=== PATIENT | female | born 1985 | race Caucasian/White ===

== ENCOUNTER 2016-09-20 12:16 | Emergency (ER) | payer OTHER ==
[~2016-09-20] VITALS: Ht 167.6 cm; Wt 105.5 kg
[2016-09-20 12:16] VITALS: Ht 167.6 cm; Wt 105.5 kg
[2016-09-20] MEDS ORDERED: SODIUM CHLORIDE 0.9% 1000ML 1,000 ML IV STA ×2 (12:25)
[2016-09-20] MEDS ORDERED: ONDANSETRON INJ 2 MG/ML 2 ML VIAL IV STA (12:25)
[2016-09-20] MEDS ORDERED: ACETAMINOPHEN 500 MG TAB PO STA (12:37)
[2016-09-20] MEDS ORDERED: OPTIRAY 320 IV PRN (12:45)
[2016-09-20 13:00] LABS: BASO % 0.6 %; BASO ABS # 0.02 K/uL (0-0.2); COMPLETE YES; EOS % 0.6 %; HEMATOCRIT 40.6 % (37-47); IG% 0.3 %; LYMPH % 27.7 %; LYMPH ABS # 0.91 K/uL (1.2-3.4); MEAN CORPUSCULAR HGB CONC 32.5 g/dl (32-36); MEAN PLATELET VOLUME 11.5 fL (7.4-10.4); MONO % 10.9 %; NEUT % 59.9 %; PLATELET COUNT 149 K/uL (130-400); RED BLOOD COUNT 4.72 M/uL (4.2-5.4); WHITE BLOOD COUNT 3.29 K/uL (4.8-10.8)
--- NOTE | 2016-09-20 13:18 | EMERGENCY ROOM VISIT NOTE ---
History Report prepared by Mirtaibbooker: Deepthi Amaro Under the Supervision of: Dr. Marshall Arango M.D. First contact with patient: 12:23 Chief Complaint: ABDOMINAL PAIN Stated Complaint: ABD PAIN, HEADACHE Nursing Triage Summary: patient states she has been having cramping and diarrhea since wednesday. pt now c/o abdominal pain mid abdominal area and fever yesterday afternoon. pt also c/ o nausea, headache and feverish this afternoon. History of Present Illness The patient is a 30 year old female who presents to the Emergency Room with complaints of persistent abdominal pain for the past 6 days. She describes the pain as feeling crampy in nature and rates her discomfort as a 5/10. She initially thought it was menstrual pain, so she took Midol, which provided minimal relief. She admits to intermittent diarrhea for the past 6 days. Magnesium Citrate provided no relief from the diarrhea. She reports she also noticed a "lump" right by her umbilicus within the past few days that is tender to palpation. Yesterday she developed a fever, which broke last night after taking Tylenol. The patient admits to some nausea and a headache, but she has not vomited. She is currently on her menstrual period and states she occasionally gets migraine headaches with her period, noting she experienced a migraine headache 4 days ago. It has since resolved. The patient denies any recent antibiotic use. She denies any history of c-diff or intestinal issues. She still has both her gallbladder and appendix. Pt denies LOC, chills, diaphoresis, visual changes, neck pain, chest pain, breathing difficulties, vomiting, back pain, melena, hematochezia, urinary symptoms, numbness, weakness , lymphadenopathy, rash, or other complaints. The patient states she is leaving for [email or web address] this coming week, in approximately 2 days. Source of History: patient Onset: 6 days PERSONAL SHOPPER Position: abdomen Symptom Intensity: 5/10 Quality: cramping Timing: other (persistent) Modifying Factors (Relieving): other (Midol) Associated Symptoms: + fevers, + headache, + nausea Review of Systems See HPI for pertinent positives and negatives. A total of ten systems were reviewed and were otherwise negative. Family History Cancer Social History Smoking Status: Never Smoker Smokeless Tobacco Use: No Alcohol Use: occasionally Drug Use: none Marital Status: Housing Status: lives with significant other Occupation Status: employed Current/Historical Medications No Active Prescriptions or Reported Meds Allergies Coded Allergies: No Known Allergies (Unverified , NONE, 09/17/08) Physical Exam Vital Signs Date Time Temp Pulse Resp B/P (MAP) Pulse Ox O2 Delivery O2 Flow Rate FiO2 09/20/16 14:48 37.0 82 18 144/95 98 09/20/16 13:42 84 18 128/89 97 Room Air 09/20/16 12:16 37.0 117 20 134/86 100 Room Air Physical Exam GENERAL: Awake, alert, well-appearing, in no distress HENT: Normocephalic, atraumatic. Oropharynx unremarkable. EYES: Normal conjunctiva. Sclera non-icteric. NECK: Supple. No nuchal rigidity. FROM. No JVD. RESPIRATORY: Clear to auscultation. CARDIAC: Regular rate, normal rhythm. Extremities warm and well perfused. Pulses equal. ABDOMEN: Soft, non-distended. Periumbilical and suprapubic tenderness to palpation. No rebound or guarding. No masses. RECTAL: Deferred. MUSCULOSKELETAL: Chest examination reveals no tenderness. The back is symmetrical on inspection without obvious abnormality. There is no CVA tenderness to palpation. No joint edema. LOWER EXTREMITIES: Calves are equal size bilaterally and non-tender. No edema. No discoloration. NEURO: Normal sensorium. No sensory or motor deficits noted. SKIN: No rash or jaundice noted. Medical Decision & Procedures ER Provider Diagnostic Interpretation: Radiology results as stated below per my review and radiologist interpretation: ABD/PELVIS IV CONTRAST ONLY CT DOSE: 984.05 mGy.cm HISTORY: Pain nausea, fever, willard and infraumbilical abd pain with guarding TECHNIQUE: Multiaxial CT images of the abdomen and pelvis were performed following the use of intravenous contrast. A dose lowering technique was utilized adhering to the principles of ALARA. COMPARISON STUDY: None. FINDINGS: Lung bases are clear. Liver spleen and pancreas are uniform. Kidneys enhance uniformly. No evidence for hydronephrosis. There is subtle infiltrative change of the root of the mesentery with moderate mesenteric adenopathy. The appendix is normal. Bowel pattern is nonobstructive. Bladder is midline. IMPRESSION: 1. mesenteric adenitis. 2. Normal appendix. 3. Nonobstructive bowel pattern. The above report was generated using voice recognition software. It may contain grammatical, syntax or spelling errors. Electronically signed by: Adi Jacobo M.D. 09/20/2016 1:44 PM Laboratory Results 09/20/16 12:45 Red Blood Count 4.72, Mean Corpuscular Volume 86.0, Mean Corpuscular Hemoglobin 28.0, Mean Corpuscular Hemoglobin Concent 32.5, Mean Platelet Volume 11.5, Neutrophils (%) (Auto) 59.9, Lymphocytes (%) (Auto) 27.7, Monocytes (%) (Auto) 10.9, Eosinophils (%) (Auto) 0.6, Basophils (%) (Auto) 0.6, Neutrophils # (Auto ) 1.97, Lymphocytes # (Auto) 0.91, Monocytes # (Auto) 0.36, Eosinophils # (Auto ) 0.02, Basophils # (Auto) 0.02 09/20/16 12:45 Test 09/20/16 12:45 09/20/16 14:20 White Blood Count 3.29 K/uL (4.8-10.8) Red Blood Count 4.72 M/uL (4.2-5.4) Hemoglobin 13.2 g/dL (12.0-16.0) Hematocrit 40.6 % (37-47) Mean Corpuscular Volume 86.0 fL (80-100) Mean Corpuscular Hemoglobin 28.0 pg (25-34) Mean Corpuscular Hemoglobin Concent 32.5 g/dl (32-36) Platelet Count 149 K/uL (130-400) Mean Platelet Volume 11.5 fL (7.4-10.4) Neutrophils (%) (Auto) 59.9 % Lymphocytes (%) (Auto) 27.7 % Monocytes (%) (Auto) 10.9 % Eosinophils (%) (Auto) 0.6 % Basophils (%) (Auto) 0.6 % Neutrophils # (Auto) 1.97 K/uL (1.4-6.5) Lymphocytes # (Auto) 0.91 K/uL (1.2-3.4) Monocytes # (Auto) 0.36 K/uL (0.11-0.59) Eosinophils # (Auto) 0.02 K/uL (0-0.5) Basophils # (Auto) 0.02 K/uL (0-0.2) RDW Standard Deviation 45.2 fL (36.4-46.3) RDW Coefficient of Variation 14.4 % (11.5-14.5) Immature Granulocyte % (Auto) 0.3 % Immature Granulocyte # (Auto) 0.01 K/uL (0.00-0.02) Anion Gap 7.0 mmol/L (3-11) Est Creatinine Clear Calc Drug Dose 121.7 ml/min Estimated GFR () 109.7 Estimated GFR (Non- 94.6 BUN/Creatinine Ratio 12.2 (10-20) Calcium Level 8.7 mg/dl (8.5-10.1) Total Bilirubin 0.4 mg/dl (0.2-1) Direct Bilirubin < 0.1 mg/dl (0-0.2) Aspartate Amino Transf (AST/SGOT) 21 U/L (15-37) Alanine Aminotransferase (ALT/SGPT) 27 U/L (12-78) Alkaline Phosphatase 62 U/L (45-117) Total Protein 7.3 gm/dl (6.4-8.2) Albumin 3.4 gm/dl (3.4-5.0) Lipase 148 U/L (73-393) Human Chorionic Gonadotropin, Qual NEG (NEG) Urine Color YELLOW Urine Appearance CLEAR (CLEAR) Urine pH 8.0 (4.5-7.5) Urine Specific [place] > 1.045 (1.000-1.030) Urine Protein NEG (NEG) Urine Glucose (UA) NEG (NEG) Urine Ketones NEG (NEG) Urine Occult Blood 2+ (NEG) Urine Nitrite NEG (NEG) Urine Bilirubin NEG (NEG) Urine Urobilinogen NEG (NEG) Urine Leukocyte Esterase NEG (NEG) Urine WBC (Auto) 0 /hpf (0-5) Urine RBC (Auto) 5-10 /hpf (0-4) Urine Hyaline Casts (Auto) 0 /lpf (0-5) Urine Epithelial Cells (Auto) 5-10 /lpf (0-5) Urine Bacteria (Auto) NEG (NEG) Laboratory results reviewed by me Medications Administered Medications (Trade) Dose Ordered Sig/Geoffrey Route Start Time Stop Time Status Last Admin Dose Admin Sodium Chloride 1,000 ml @ 125 mls/hr Q8H STAT IV 09/20/16 12:25 09/20/16 14:59 DC 09/20/16 14:05 125 MLS/HR Sodium Chloride 1,000 ml @ 999 mls/hr Q1H1M STAT IV 09/20/16 12:25 09/20/16 13:25 DC 09/20/16 12:47 999 MLS/HR Acetaminophen (Tylenol Tab) 1,000 mg NOW STAT PO 09/20/16 12:37 09/20/16 12:38 DC 09/20/16 12:46 1,000 MG Ondansetron HCl (ZOFRAN ODT 4MG Home Pack) 1 homepack UD ONCE PO 09/20/16 14:45 09/20/16 14:46 DC 09/20/16 14:47 1 HOMEPACK ED Course 1224: The patient was evaluated in room A10. A complete history and physical exam was performed. 1225: Zofran 4 mg IV, NSS 1000 ml @ 999 mls/hr IV, NSS 1000 ml @ 125 mls/hr IV. 1237: Acetaminophen 1000 mg PO. 1349: I reevaluated the patient. She is feeling well and resting comfortably. 1440: I reevaluated the patient. She is still feeling better. I discussed her results and discharge instructions and she verbalized complete understanding and agreement. Medical Decision Medication Reconciliation: I attest that I have personally reviewed the patient' s current medication list Patient was found to have a slightly elevated blood pressure due to circumstances. I do not believe that the patient requires hypertension monitoring. Triage Nursing notes reviewed. The patient's presentation and history were concerning for abdominal pain, fever , diarrhea and headache. Etiologies such as food borne illness, viral syndrome, c.diff infection, appendicitis, diverticulitis, obstruction, inflammatory bowel disease, renal colic, PUD, biliary pathology, pancreatitis, mesenteric ischemia, aortic pathology, infections, genitourinary, UTI, perforated viscus, migraine, , as well as others were entertained. The patient requested tylenol and was also hydrated. She declined analgesia. Blood work and imaging ordered. The patient had guarding and moderate infraumbilical tenderness. The patient's CBC revealed a mild leukopenia. Her chemistry panel, LFTs and lipase were unremarkable. Urinalysis did show some trace blood but the patient was on her menses. She is not . The patient had a stool sample sent. CT imaging was performed and revealed findings consistent with mesenteric adenitis. The main cluster of inflamed lymph nodes is infraumbilical and this would explain her tenderness. I discussed conservative management with the patient. She felt comfortable. She was given a Zofran home pack in case of any nausea. She will hydrate. She will follow-up as an outpatient. If she has any worsening issues she will come back to the Emergency Room for reevaluation. By the evaluation outlined above other emergent etiologies such as those listed in the differential, as well as others, were deemed relatively unlikely. The patient was educated about the findings as listed above. All questions were answered and the patient was pleased with the treatment. Return instructions were outlined and the patient was discharged in stable condition. The patient was referred to her PCP For follow-up for a recheck of the current condition. Impression Primary Impression: Mesenteric adenitis Additional Impressions: Abdominal pain Diarrhea Scribe Attestation The scribe's documentation has been prepared under my direction and personally reviewed by me in its entirety. I confirm that the note above accurately reflects all work, treatment, procedures, and medical decision making performed by me. Departure Information Dispostion Home / Self-Care Prescriptions No Active Prescriptions or Reported Meds Referrals Elle Alba C.R.N.P. (PCP) Patient Instructions ED Adenitis Mesenteric, My [facility] Additional Instructions ABDOMINAL PAIN INSTRUCTIONS: Ibuprofen(Motrin, Advil) may be used for fever or pain. Use 600mg every six hours as needed. Take with food. Avoid using more than 2400mg in a 24 hour period. Do not use 2400mg per day for more than three consecutive days without physician direction. Prolonged inappropriate use can lead to stomach upset or ulcers. (AND/OR) Acetaminophen(Tylenol) may be used for fever or pain. Use 1000mg every six hours as needed. Avoid using more than 4000mg in a 24 hour period. Zofran 4 mg oral dissolving tablets: take one tablet and allow it to melt in your mouth every 4 hours as needed for nausea. Rest and drink plenty of fluids as tolerated. Slow sips of water or sports drinks are recommended instead of large amounts all at once. Continue current medications. Once your stomach is settled start with a clear liquid diet (jello, soup broth, etc.) and then advance as tolerated. You should avoid full, heavy meals for about 24 hrs from the time your symptoms resolved. Return to the ER immediately for worsening or persistent abdominal pain, vomiting, fevers, chest pains, difficulty breathing, black or bloody stools, worsening of your condition, or as needed. Follow up with your primary physician in 2-3 days for a recheck of your current condition. Problem Qualifiers
[2016-09-20 13:21] LABS: PREG INTERNAL NEGATIVE QC NEG CLEAR BACKGROUND; PREG INTERNAL POSITIVE QC POS CONTROL LINE
[2016-09-20 13:30] LABS: ALT/SGPT 27 U/L (12-78); AST/SGOT 21 U/L (15-37); BLOOD UREA NITROGEN 10 mg/dl (7-18); BUN/CREATININE RATIO 12.2 (10-20); CALCIUM 8.7 mg/dl (8.5-10.1); CARBON DIOXIDE 26 mmol/L (21-32); CHLORIDE 107 mmol/L (98-107); CREATININE 0.83 mg/dl (0.60-1.20); GLUCOSE 100 mg/dl (70-99); POTASSIUM 3.7 mmol/L (3.5-5.1); SODIUM 140 mmol/L (136-145)
[2016-09-20 13:32] LABS: ALKALINE PHOSPHATASE 62 U/L (45-117)
--- NOTE | 2016-09-20 13:45 | DIAGNOSTIC IMAGING REPORT ---
ABD/PELVIS IV CONTRAST ONLY CT DOSE: 984.05 mGy.cm HISTORY: Pain nausea, fever, willard and infraumbilical abd pain with guarding TECHNIQUE: Multiaxial CT images of the abdomen and pelvis were performed following the use of intravenous contrast. A dose lowering technique was utilized adhering to the principles of ALARA. COMPARISON STUDY: None. FINDINGS: Lung bases are clear. Liver spleen and pancreas are uniform. Kidneys enhance uniformly. No evidence for hydronephrosis. There is subtle infiltrative change of the root of the mesentery with moderate mesenteric adenopathy. The appendix is normal. Bowel pattern is nonobstructive. Bladder is midline. IMPRESSION: 1. mesenteric adenitis. 2. Normal appendix. 3. Nonobstructive bowel pattern. The above report was generated using voice recognition software. It may contain grammatical, syntax or spelling errors. Electronically signed by: Adi Jacobo M.D. 09/20/2016 1:44 PM Dictated Date/Time: 09/20/2016 1:42 PM
[2016-09-20] MEDS ORDERED: ONDANSETRON HOME PACK 4MG OD TAB PO ONE (14:45)
[2016-09-20 14:48] VITALS: BP 144/95; PULSE 82; TEMP 37; O2SAT 98
[2016-09-20 15:02] LABS: URINE APPEARANCE CLEAR (CLEAR); URINE BILIRUBIN NEG (NEG); URINE COLOR YELLOW; URINE NITRITE NEG (NEG); URINE SPECIFIC GRAVITY > 1.045 (1.000-1.030); UROBILINOGEN NEG (NEG); ZZUR CULT IF INDIC CLEAN CATCH NO
[2016-09-20 15:07] LABS: MANUAL MICROSCOPIC REQUIRED? NO; REVIEW REQ? NO
== END 2016-09-20 14:49 | disposition home or self-care (01) ==
LOC: C.EDB 12:16 → C.EDA 14:49
DX: I88.0 Nonspecific mesenteric lymphadenitis (principal); R10.9 Unspecified abdominal pain; R19.7 Diarrhea, unspecified; D72.819 Decreased white blood cell count, unspecified; Z80.9 Family history of malignant neoplasm, unspecified

== ENCOUNTER → 2017-01-01 | Outpatient (CLI) | payer OTHER ==
[2017-01-01 13:16] LABS: ESTIMATED AVERAGE GLUCOSE 100 mg/dl; HA1C FLAG Normal (Normal)
== END | disposition home or self-care (01) ==
LOC: C.LABBFT 10:04
PROVIDERS: ATTEND Nurse Practitioner
DX: R73.01 Impaired fasting glucose (principal)

== ENCOUNTER → 2017-05-28 | Outpatient (CLI) | payer OTHER | END | disposition home or self-care (01) | LOC: C.LAB 11:24 | PROVIDERS: ATTEND Obstetrics & Gynecology | DX: E03.9 Hypothyroidism, unspecified (principal) ==

== ENCOUNTER 2019-07-19 07:36 | Inpatient (IN) ==
[2019-07-19] MEDS ORDERED: OXYTOCIN 30 UNITS/500 ML BAG IV PRN ×3 (07:41→20:26)
[2019-07-19] MEDS ORDERED: PENICILLIN G POTASSIUM 6 MU in DEXTROSE 5% 250 ML IV ONE (08:00)
--- NOTE | 2019-07-19 08:01 | History & Physical Report ---
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 - admits, IV, labs - augmentation as needed Labs: GBS +, A+ SVE: 4 cm, 75%, -2, soft, posterior GDMA2 - continue to monitor BG Hypothyroidism - switch levothyroxine from 88 - 75 after delivery GBS + status - penicillin 6 million units and 3 million units every 4 hours Fetus - FHTS: category 1 - EFW: 7-8 lbs - continue monitoring - contractions every 6-7 minutes History of Present Illness Chief Complaint: IOL Primary Care Provider: SILVIA Key Sabra Payan is a 33 yo here for induction of . 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 She is taking levothyroxine for hypothyroidism with a dose of 88 and this is planned to be transitioned to 75 after delivery. She has GDMA2 and is taking NPH 25 U QHS. She has had some Fillmore-Sanchez contractions this morning, no bleeding or loss of fluid, she thinks she lost her mucus plug on Wednesday and has had some increased discharge. She has not been sick during this . 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 They are having a boy and plan to name him Arthur. Plan is to and circumcision. She has not had any sick contacts, no recent travel, no fevers, and no shortness of breath. Medications: Levothyroxine 88, PNV, and Vit. D Allergies: denies allergies to medication, food or materials Allergies Allergy/AdvReac Type Severity Reaction Status Date / Time No Known Allergies Allergy NONE Verified 07/18/19 10:11 Home Medications Home Medications Medication Instructions Recorded Confirmed Type prenat.vits,mary,[id number] 1 tab PO DAILY 10/04/18 07/19/19 History levothyroxine 88 mcg tablet 88 mcg PO DAILY #90 tab 02/20/19 07/19/19 Rx acetone (urine) test #50 ea 05/11/19 07/18/19 Rx blood sugar diagnostic #150 ea 05/11/19 07/18/19 Rx blood-glucose meter #1 ea 05/11/19 07/18/19 Rx lancets 33 gauge #150 ea 05/11/19 07/18/19 Rx pen needle, diabetic 32 gauge x #50 ea 05/26/19 07/18/19 Rx 5/32" insulin NPH isoph U-100 human 100 25 units SQ QPM #15 ml 06/22/19 07/19/19 Rx unit/mL (3 mL) subcutaneous pen Patient History Medical History Abnormal biochemical finding on screening of mother Encounter for anatomic survey Varicella Surgical History Ganglion cyst of wrist S/P wisdom tooth extraction Family History Father Hypertension Mother Hypertension Grandmother (Paternal) Hypothyroidism Grandfather (Paternal) Colorectal cancer Social History Preferred Language: Croatian Communication Ability: Effective Risk Management Director Required: No Beliefs That Will Affect Care: None marital status: marital status details: Germain Payan (29) [phone] Current Living Situation: Spouse Current Living Situation Comment: cats, dog, fish- pt not changing cat litter current occupational status: employed current occupation: RN in ED at [employer] Other Information That Helps Us Care for You: No Feels Safe at Home: Yes Safety Concerns: Feels Safe At This Time Smoking Status: Never smoker Tobacco Cessation Education Requested by Patient: No Hx Alcohol Use: No Hx Substance Use: No OB History Review of Systems Denies fever, chills, sweats Denies shortness of breath, difficulty breathing, chest pain, palpitations, chest pressure. Denies dysuria. Denies headache, double vision, RUQ pain Physical Exam Physical Exam: General: Alert, oriented. No acute distress. Cardiac: Regular rate and rhythm, no murmurs/rubs/gallops. Respiratory: Clear to auscultation anterior and posteriorly, no wheezes/rales/rhonchi. No increased work of breathing. Symmetrical chest rise. No respiratory distress. Abdomen: gravid, vertex, + bowel sounds Lower Extremities: No lower extremity edema or swelling. No deep calf pain. Braxton's negative bilaterally. Tocometry: contractions Q6-7 minutes Results & Data Vital Signs (Past 12 Hours) Vital Signs Pulse BP 07/19/19 07:49 117 H 135/78 Monitoring External Monitor Category 1 - normal baseline 155 - no early decelerations, no late decelerations, no variable decelerations. Tocometry - contractions Q6-7 minutes Resident Activity Tracking Resident Involvement: Resident Care Provided Care Provided: OB Delivery
[2019-07-19 08:16] LABS: Hemoglobin 13.5 g/dL (12.0-16.0); Mean Corpuscular Hemoglobin 30.9 pg (25-34); Mean Corpuscular Volume 91.5 fL (80-100); Platelet Count 172 K/uL (130-400); RDW Coefficient of Variation 14.7 % (11.5-14.5); RDW Standard Deviation 49.2 fL (36.4-46.3); Red Blood Count 4.37 M/uL (4.2-5.4); White Blood Count 13.13 K/uL (4.8-10.8)
[2019-07-19 08:20] LABS: Mean Corpuscular Hgb Conc 33.8 g/dL (32-36)
[2019-07-19] MEDS: LACTATED RINGER'S 1,000 ML IV PRN ×3 (08:51→17:16)
[2019-07-19] MEDS ORDERED: DEXTROSE 5% 1,000 ML IV PRN (11:59)
[2019-07-19] MEDS ORDERED: SODIUM CHLORIDE 0.9% 1000ML 1,000 ML IV PRN (11:59)
[2019-07-19] MEDS ORDERED: DEXTROSE 50% 50 ML SYRINGE IV PRN (11:59)
[2019-07-19] MEDS ORDERED: INSULIN REGULAR 250 UNITS in SODIUM CHLORIDE 0.9% 247.5 ML IV PRN (11:59)
[2019-07-19] MEDS ORDERED: PENICILLIN G POTASSIUM 3 MU in DEXTROSE 5% 100 ML IV SCH (12:00)
--- NOTE | 2019-07-19 12:08 | Labor Progress Brief Note ---
Date of Service July 19, 2019 Pitocin starting to effectuate CTX, but mild. AROM for clear fluid. GDM on insulin orders started Results & Data Vital Signs (Past 12 Hours) Vital Signs Temp Pulse Resp BP 07/19/19 11:35 98.4 F 77 18 122/68 07/19/19 10:28 87 120/80 07/19/19 09:30 85 18 117/73 07/19/19 08:32 92 H 18 120/69 07/19/19 07:50 98.8 F 18 07/19/19 07:49 98.8 F 117 H 18 135/78 Coding Level of Care Code None
[2019-07-19] MEDS ORDERED: BUPIVACAINE 0.25% 30 ML VIAL ONE (13:07)
[2019-07-19] MEDS ORDERED: ePHEDrine sulfate 50 MG/ML AMP ONE (13:07)
[2019-07-19] MEDS ORDERED: fentaNYL citrate 100 MCG/2 ML VIAL ONE (13:08)
[2019-07-19] MEDS ORDERED: fentaNYL 2MCG/ML ROPIV 1.25MG/ML 100 ML BAG EPI ONE (13:08)
[2019-07-19] MEDS ORDERED: NALBUPHINE HCL INJ 10 MG/ML AMP IV PRN (13:16)
[2019-07-19] MEDS ORDERED: NALOXONE HCL 0.4 MG/1 ML VIAL/CARP IV PRN (13:16)
[2019-07-19] MEDS ORDERED: NALOXONE HCL 1 MG in SODIUM CHLORIDE 0.9% 1000ML 1,000 ML IV PRN (13:16)
[2019-07-19] MEDS ORDERED: ONDANSETRON INJ 2 MG/ML 2 ML VIAL IV PRN (13:16)
[2019-07-19] MEDS ORDERED: ePHEDrine sulfate 50 MG/ML AMP IV PRN (13:16)
[2019-07-19] MEDS ORDERED: fentaNYL 2MCG/ML ROPIV 1.25MG/ML 100 ML BAG EPI PRN (13:16)
[2019-07-19] MEDS ORDERED: DiphenhydrAMINE HCL 50 MG/ML VIAL IV PRN (13:16)
--- NOTE | 2019-07-19 13:17 | Anesthesiology Consultation ---
Date of Service July 19, 2019 Assessment & Plan (1) Encounter for pre-operative examination: Chart Review Chart Review: Patient NOT seen in Pre Admission Testing and Acceptable Risk for Labor Epidural Consults Requested none History Height/Weight Height: 5 ft 5.5 in Weight: 120.202 kg Allergies Allergy/AdvReac Type Severity Reaction Status Date / Time No Known Allergies Allergy NONE Verified 07/18/19 10:11 Medications Home Medications Medication Instructions Recorded Confirmed Last Taken prenat.vits,mary,[id number] 1 tab PO DAILY 10/04/18 07/19/19 1 Day Ago ~07/18/19 levothyroxine 88 mcg tablet 88 mcg PO DAILY #90 tab 02/20/19 07/19/19 07/19/19 acetone (urine) test #50 ea 05/11/19 07/18/19 Unknown blood sugar diagnostic #150 ea 05/11/19 07/18/19 Unknown blood-glucose meter #1 ea 05/11/19 07/18/19 Unknown lancets 33 gauge #150 ea 05/11/19 07/18/19 Unknown pen needle, diabetic 32 gauge x #50 ea 05/26/19 07/18/19 Unknown 32" insulin NPH isoph U-100 human 100 25 units SQ QPM #15 ml 06/22/19 07/19/19 1 Day Ago unit/mL (3 mL) subcutaneous pen ~07/18/19 Active Medications Generic Name Dose Route Start Last Admin Trade Name Freq PRN Reason Stop Dose Admin Lactated Ringer's 1,000 mls @ 125 mls/hr 07/19/19 07:41 07/19/19 08:51 Lr IV 07/21/19 07:40 125 mls/hr .Q8H PRN Administration L&D Protocol Protocol Oxytocin 30 units in 500 mls @ 10 mls/hr 07/19/19 08:53 07/19/19 11:30 Pitocin IV 07/21/19 08:52 0.6 units/hr .Q24H PRN 10 mls/hr Labor Induction/Augmentation Titration Protocol 0.6 UNITS/HR Past Medical History Medical History (Updated 07/19/19 @ 13:17 by Kj Jerez MD) Abnormal biochemical finding on screening of mother Encounter for anatomic survey Insulin controlled gestational diabetes mellitus (GDM) during , antepartum Subclinical hypothyroidism (Inactive) Varicella Exercise / Class Metabolic Activity II 4-5 Yardwork/Stairs/Walk up hill Past Family History Family History Father Hypertension Mother Hypertension Grandmother (Paternal) Hypothyroidism Grandfather (Paternal) Colorectal cancer Past Surgical History Surgical History Ganglion cyst of wrist S/P wisdom tooth extraction Past Anesthesia History No Hx of Anesthesia Complications and No Family Hx of Anesthesia Complications History of PONV No Hx of PONV and No Hx of Motion Sickness Social History Smoking Status: Never smoker Hx Alcohol Use: No Hx Substance Use: No substance use type: does not use Physical Exam Vital Signs Last Vital Signs Temp 36.9 C 07/19/19 11:35 Pulse 81 07/19/19 12:08 Resp 18 07/19/19 11:35 BP 135/87 07/19/19 12:08 Testing Laboratory Results 07/19/19 08:00 07/19/19 07/19/19 12:26 09:37 POC Glucose 99 107 H
[2019-07-19] MEDS ORDERED: PENICILLIN G POTASSIUM 3 MU in DEXTROSE 5% 100 ML IV PRN (16:59)
--- NOTE | 2019-07-19 20:15 | Delivery Summary ---
Vaginal Delivery Summary Date of Service July 19, 2019 Vaginal Delivery Summary Patient delivered vaginally with a willard-clitoral tear. Baby delivered in occiput anterior position. Mouth and nares then suctioned with bulb. No nuchal cord, fluid was clear. Baby delivered with gentle traction, no excess force used. Live vigorous . Cord clamped and cut. Gases obtained and cord blood obtained. Catheter placed in bladder to allow repeair with 3-0 vicryl, catheter then removed Placenta removed with traction. Pitocin started and uterine tone improved. Bleeding improved. Sponge and instrument counts correct. EBL= 300ml
--- NOTE | 2019-07-19 20:20 | Obstetrical Progress Note ---
Date of Service Cx unchanged after 2 checks. 4cm, 0 station CTX minimal now Home July 19, 2019 Results & Data Vital Signs (Past 12 Hours) Vital Signs Temp Pulse Resp BP Pulse Ox 07/19/19 20:16 113 H 119/64 07/19/19 20:10 97 H 84 L 07/19/19 20:08 100 H 112/58 L 97 07/19/19 20:03 112 H 100 07/19/19 19:58 110 H 93 07/19/19 19:57 103 H 87 L 07/19/19 19:53 117 H 81 L 07/19/19 19:48 109 H 71 L 07/19/19 19:46 109 H 84 L 07/19/19 19:45 22 07/19/19 19:43 122 H 74 L 07/19/19 19:40 93 H 81 L 07/19/19 19:38 99 H 100 07/19/19 19:33 104 H 94 07/19/19 19:32 102 H 83 L 07/19/19 19:30 22 07/19/19 19:28 101 H 100 07/19/19 19:26 89 84 L 07/19/19 19:23 119 H 97 07/19/19 19:22 101 H 125/65 07/19/19 19:18 90 69 L 07/19/19 19:13 118 H 100 07/19/19 19:11 97 H 81 L 07/19/19 19:08 95 H 95 07/19/19 19:05 93 H 129/66 07/19/19 19:03 120 H 92 07/19/19 19:01 103 H 82 L 07/19/19 19:00 98.6 F 22 07/19/19 18:58 93 H 98 07/19/19 18:55 108 H 86 L 07/19/19 18:53 106 H 96 07/19/19 18:48 112 H 97 07/19/19 18:47 103 H 78 L 07/19/19 18:45 20 07/19/19 18:43 108 H 113/64 99 07/19/19 18:42 100 H 85 L 07/19/19 18:38 104 H 99 07/19/19 18:35 96 H 86 L 07/19/19 18:33 98 H 84 L 07/19/19 18:30 20 07/19/19 18:29 113 H 82 L 07/19/19 18:28 109 H 99 07/19/19 18:23 95 H 136/71 99 07/19/19 18:18 107 H 100 07/19/19 18:13 84 119/69 99 07/19/19 18:08 81 100 07/19/19 18:03 77 100 07/19/19 18:02 79 126/68 07/19/19 18:00 20 07/19/19 17:58 76 99 07/19/19 17:53 78 152/63 H 100 07/19/19 17:48 76 99 07/19/19 17:43 75 124/64 98 07/19/19 17:38 81 100 07/19/19 17:33 76 126/73 99 07/19/19 17:30 20 07/19/19 17:28 73 98 07/19/19 17:23 77 99 07/19/19 17:22 74 130/66 07/19/19 17:18 89 99 07/19/19 17:15 98.2 F 07/19/19 17:13 74 100 07/19/19 17:12 80 133/68 07/19/19 17:08 73 100 07/19/19 17:03 74 98 07/19/19 17:02 73 132/61 07/19/19 17:00 22 07/19/19 16:58 74 100 07/19/19 16:53 71 120/69 99 07/19/19 16:48 74 99 07/19/19 16:43 77 100 07/19/19 16:42 76 121/59 L 07/19/19 16:38 88 99 07/19/19 16:33 73 117/59 L 99 07/19/19 16:30 20 07/19/19 16:28 76 99 07/19/19 16:24 77 07/19/19 16:23 82 98 07/19/19 16:21 81 137/67 07/19/19 16:19 80 140/76 07/19/19 16:18 90 100 07/19/19 16:13 104 H 138/92 100 07/19/19 16:08 84 100 07/19/19 16:03 90 129/74 98 07/19/19 16:00 20 07/19/19 15:58 80 100 05/27/20 15:53 93 H 100 07/19/19 15:48 86 100 07/19/19 15:43 84 131/62 98 07/19/19 15:38 76 100 07/19/19 15:37 83 90 07/19/19 15:33 88 100 07/19/19 15:32 86 126/67 07/19/19 15:30 18 07/19/19 15:28 78 100 07/19/19 15:23 93 H 116/58 L 99 07/19/19 15:18 80 100 07/19/19 15:14 85 91 07/19/19 15:13 80 131/72 100 07/19/19 15:08 88 99 07/19/19 15:03 74 100 07/19/19 15:02 75 134/69 07/19/19 15:00 98.1 F 20 07/19/19 14:58 80 99 07/19/19 14:53 75 129/60 100 07/19/19 14:50 18 07/19/19 14:48 73 100 07/19/19 14:43 81 97 07/19/19 14:42 80 138/78 07/19/19 14:38 97 H 100 07/19/19 14:34 69 119/69 07/19/19 14:33 70 99 07/19/19 14:28 75 100 07/19/19 14:23 78 100 07/19/19 14:21 73 20 124/60 07/19/19 14:18 86 99 07/19/19 14:13 73 99 07/19/19 14:08 77 99 07/19/19 14:07 81 101/53 L 07/19/19 14:04 75 20 111/64 07/19/19 14:03 73 97 07/19/19 13:59 72 100/51 L 07/19/19 13:58 70 98 07/19/19 13:56 75 109/55 L 07/19/19 13:55 72 93 07/19/19 13:53 76 100 07/19/19 13:52 61 125/55 L 07/19/19 13:48 98.6 F 77 22 100 07/19/19 13:47 89 131/76 07/19/19 13:43 70 125/71 98 07/19/19 13:39 81 127/70 07/19/19 13:38 73 22 100 07/19/19 13:35 84 127/67 07/19/19 13:33 84 100 07/19/19 13:28 79 140/84 100 07/19/19 13:16 73 18 125/71 07/19/19 12:08 81 18 135/87 07/19/19 11:35 98.4 F 77 18 122/68 07/19/19 10:28 87 120/80 07/19/19 09:30 85 18 117/73 07/19/19 08:32 92 H 18 120/69 PG Care Time/CCT Total # of Minutes Spent Total Time Spent with Patient: Total time spent is greater than 50% in coordination of care (as documented) at patient's floor/unit and/or counseling patient: Coding Level of Care Code 83687 Office/Outpt Visit, Est
[2019-07-19] MEDS ORDERED: ACETAMINOPHEN 325 MG TAB PO PRN (20:26)
[2019-07-19] MEDS ORDERED: OXYCODONE/ACETAMINOPHEN 5mg/325mg TAB PO PRN (20:26)
[2019-07-19] MEDS ORDERED: bisacodyL 10 MG SUPP PR PRN (20:26)
[2019-07-19] MEDS ORDERED: HYDROCORTISONE ACETATE 25 MG SUPP PR PRN (20:26)
[2019-07-19] MEDS ORDERED: SUPERCREAM 0.870% 15 GM JAR EXT PRN (20:26)
[2019-07-19] MEDS ORDERED: BENZOCAINE 20% AER SPR 82.5 GM CAN EXT PRN (20:26)
[2019-07-19] MEDS ORDERED: DIPHTHERIA/TETANUS/PERTUSSIS 0.5 ML SYR/VIAL IM ONE (20:26)
[2019-07-19] MEDS: DOCUSATE SODIUM 100 MG CAP PO SCH (21:11)
[2019-07-19] MEDS: IBUPROFEN 600 MG TAB PO PRN (21:11)
--- NOTE | 2019-07-20 05:01 | Obstetrical Progress Note ---
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 GDMA2 - evaluate for development of diabetes at follow up Hypothyroidism - switch levothyroxine from 88 - 75 mcg after delivery GBS + status - penicillin -PPD# 1 - GBS +, Blood Type A+ - Feels well today. Eating well, voiding well, ambulating well. - Pain well controlled. - Routine post care - After discharge will have [address] Riley. Admission and Anticipated Discharge Date Admission Date: July 19, 2019 Supervising Physician Co-Signing Physician Notes Resident Physician Supervision Note: I was present with [Raymon] during the history and exam. I discussed the case with the resident and agree with the findings and plan as documented in the note. Any exceptions or clarifications are listed here: [None] Documented By: Diana Riley MD, FACOG Subjective Sabra Payan is doing well this morning. She is ambulating, voiding, passing gas, eating a regular diet without difficulty. She is and, "working on it". pain is a 2/10. She had no questions this morning. Review of Systems Review of Systems: Denies fever, chills, sweats Denies shortness of breath, difficulty breathing, chest pain, palpitations, chest pressure. Denies dysuria. Denies headache, double vision, RUQ pain Physical Exam Physical Exam: General: Alert, oriented. No acute distress. Cardiac: Regular rate and rhythm, no murmurs/rubs/gallops. Respiratory: Clear to auscultation anterior and posteriorly, no wheezes/rales/rhonchi. No increased work of breathing. Symmetrical chest rise. No respiratory distress. Abdomen: Soft, nontender, nondistended. Bowel sounds present. Uterus: Uterine fundus firm, palpable 1 cm below umbilicus. Lower Extremities: No lower extremity edema or swelling. No deep calf pain. Braxton's negative bilaterally. Results & Data ([facility]) Vital Signs (Past 12 Hours) Vital Signs Temp Pulse Resp BP Pulse Ox 07/20/19 03:20 36.8 C 105 H 18 128/79 07/19/19 23:00 36.7 C 118 H 20 142/84 H 98 07/19/19 22:16 116 H 117/62 07/19/19 22:15 37 C 20 07/19/19 22:01 129 H 129/70 07/19/19 21:46 102 H 108/60 07/19/19 21:31 86 119/70 07/19/19 21:30 18 07/19/19 21:16 96 H 120/66 07/19/19 21:01 116 H 119/66 07/19/19 21:00 18 07/19/19 20:46 101 H 112/65 07/19/19 20:45 18 07/19/19 20:35 105 H 117/59 L 07/19/19 20:30 18 07/19/19 20:16 113 H 119/64 07/19/19 20:15 37.4 C 07/19/19 20:10 97 H 84 L 07/19/19 20:08 100 H 112/58 L 97 07/19/19 20:03 112 H 100 07/19/19 19:58 110 H 93 07/19/19 19:57 103 H 87 L 07/19/19 19:53 117 H 81 L 07/19/19 19:48 109 H 71 L 07/19/19 19:46 109 H 84 L 07/19/19 19:45 22 07/19/19 19:43 122 H 74 L 07/19/19 19:40 93 H 81 L 07/19/19 19:38 99 H 100 07/19/19 19:33 104 H 94 07/19/19 19:32 102 H 83 L 07/19/19 19:30 22 07/19/19 19:28 101 H 100 07/19/19 19:26 89 84 L 07/19/19 19:23 119 H 97 07/19/19 19:22 101 H 125/65 07/19/19 19:18 90 69 L 07/19/19 19:13 118 H 100 07/19/19 19:11 97 H 81 L 07/19/19 19:08 95 H 95 07/19/19 19:05 93 H 129/66 07/19/19 19:03 120 H 92 07/19/19 19:01 103 H 82 L 07/19/19 19:00 37.0 C 07/19/19 18:58 93 H 98 05/27/20 18:55 108 H 86 L 07/19/19 18:53 106 H 96 07/19/19 18:48 112 H 97 07/19/19 18:47 103 H 78 L 07/19/19 18:45 20 07/19/19 18:43 108 H 113/64 99 07/19/19 18:42 100 H 85 L 07/19/19 18:38 104 H 99 07/19/19 18:35 96 H 86 L 07/19/19 18:33 98 H 84 L 07/19/19 18:30 20 07/19/19 18:29 113 H 82 L 07/19/19 18:28 109 H 99 07/19/19 18:23 95 H 136/71 99 07/19/19 18:18 107 H 100 07/19/19 18:13 84 119/69 99 07/19/19 18:08 81 100 07/19/19 18:03 77 100 07/19/19 18:02 79 126/68 07/19/19 18:00 20 07/19/19 17:58 76 99 07/19/19 17:53 78 152/63 H 100 07/19/19 17:48 76 99 07/19/19 17:43 75 124/64 98 07/19/19 17:38 81 100 07/19/19 17:33 76 126/73 99 07/19/19 17:30 20 07/19/19 17:28 73 98 07/19/19 17:23 77 99 07/19/19 17:22 74 130/66 07/19/19 17:18 89 99 07/19/19 17:15 36.8 C 07/19/19 17:13 74 100 07/19/19 17:12 80 133/68 07/19/19 17:08 73 100 07/19/19 17:03 74 98 07/19/19 17:02 73 132/61 07/19/19 17:00 22 07/19/19 16:58 74 100 Resident Activity Tracking Resident Involvement: Resident Care Provided Care Provided: OB Delivery
[2019-07-20] MEDS: LEVOTHYROXINE SODIUM 88 MCG TABLET PO SCH (06:28)
[2019-07-20] MEDS: IBUPROFEN 600 MG TAB PO PRN (06:46)
[2019-07-20 06:59] LABS: Hematocrit (blood only) 33.5 % (37-47); Hemoglobin 11.2 g/dL (12.0-16.0); Mean Corpuscular Hemoglobin 30.6 pg (25-34); Mean Corpuscular Hgb Conc 33.4 g/dL (32-36); Mean Corpuscular Volume 91.5 fL (80-100); Mean Platelet Volume 12.7 fL (7.4-10.4); Platelet Count 154 K/uL (130-400); RDW Coefficient of Variation 14.8 % (11.5-14.5); RDW Standard Deviation 49.4 fL (36.4-46.3); Red Blood Count 3.66 M/uL (4.2-5.4); White Blood Count 14.54 K/uL (4.8-10.8)
[2019-07-20] MEDS: DOCUSATE SODIUM 100 MG CAP PO SCH ×2 (08:49→21:25)
[2019-07-20] MEDS: PRENATAL VITAMIN 1 TAB PO SCH (08:49)
[2019-07-20] MEDS ORDERED: NON-FORMULARY MEDICATION (Prenat.Vits,Cal,Min-Iron-Folic 1 TAB) PO SCH (09:00)
[2019-07-20] MEDS ORDERED: bisacodyL 5 MG TABEC PO SCH (20:00)
--- NOTE | 2019-07-21 05:27 | Obstetrical Progress Note ---
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 GDMA2 - evaluate for development of diabetes at follow up Hypothyroidism - continue levothyroxine 75 mcg after delivery GBS + status - appropriately treated with penicillin -PPD# 2 - GBS +, Blood Type A+ - Feels well today. Eating well, voiding well, ambulating well. - Pain well controlled. - Routine post care - After discharge will have [address] Riley. Admission and Anticipated Discharge Date Admission Date: July 19, 2019 Supervising Physician Co-Signing Physician Notes Resident Physician Supervision Note: I was present with during the history and exam. I discussed the case with the resident and agree with the findings and plan as documented in the note. Any exceptions or clarifications are listed here: [None] Documented By: Kavita Starks MD, FACOG Subjective Doing well this morning, working on . No questions or concerns. Review of Systems Review of Systems: Denies fever, chills, sweats Denies shortness of breath, difficulty breathing, chest pain, palpitations, chest pressure. Denies dysuria. Denies headache, double vision, RUQ pain Physical Exam Physical Exam: General: Alert, oriented. No acute distress. Cardiac: Regular rate and rhythm, no murmurs/rubs/gallops. Respiratory: Clear to auscultation anterior and posteriorly, no wheezes/rales/rhonchi. No increased work of breathing. Symmetrical chest rise. No respiratory distress. Abdomen: Soft, nontender, nondistended. Bowel sounds present. Uterus: Uterine fundus firm, palpable 1 cm below umbilicus. Lower Extremities: No lower extremity edema or swelling. No deep calf pain. Braxton's negative bilaterally. Results & Data ([facility]) Vital Signs (Past 12 Hours) Vital Signs Temp Pulse Resp BP Pulse Ox 07/21/19 01:00 36.7 C 88 20 124/81 07/20/19 19:35 36.7 C 108 H 20 133/85 98 Resident Activity Tracking Resident Involvement: Resident Care Provided Care Provided: OB Delivery
[2019-07-21] MEDS: LEVOTHYROXINE SODIUM 88 MCG TABLET PO SCH (06:33)
[2019-07-21 06:34] LABS: Hematocrit (blood only) 30.7 % (37-47); Hemoglobin 10.1 g/dL (12.0-16.0)
[2019-07-21] MEDS: DOCUSATE SODIUM 100 MG CAP PO SCH (08:12)
[2019-07-21] MEDS: PRENATAL VITAMIN 1 TAB PO SCH (08:12)
== END 2019-07-21 15:30 | disposition home or self-care (01) | DRG 807 ==
LOC: 4S1 07:36 → 4S2 22:40